=== PATIENT | female | born 1945 | race Caucasian/White ===

== ENCOUNTER 2016-11-27 17:22 | Inpatient (IN) | payer MEDICARE, MEDICAID ==
[~2016-11-27] VITALS: Ht 162.6 cm; Wt 90.4 kg
[2016-11-27] MEDS ORDERED: ASPIRIN 81 MG CHEW TAB ONE ×2 (17:44→17:52)
[2016-11-27] MEDS ORDERED: DOCUSATE SOD 100 MG CAP PO PRN (21:25)
[2016-11-27] MEDS ORDERED: SODIUM CHLORIDE 0.9% 1,000 ML IV SCH (21:25)
[2016-11-27] MEDS ORDERED: MORPHINE 2 MG/ML SYR IV PRN (21:25)
[2016-11-27] MEDS ORDERED: SODIUM CHLORIDE 0.9% FLUSH BAG 500 ML IV PRN (21:25)
[2016-11-27] MEDS ORDERED: SALINE FLUSH 10 ML FLUSH PRN (21:25)
[2016-11-27] MEDS ORDERED: NITROGLYCERIN 50 MG/250 ML IV PRN (21:25)
[2016-11-27] MEDS ORDERED: LORAZEPAM 0.5 MG TAB PO PRN (21:25)
[2016-11-27] MEDS ORDERED: NITROGLYCERIN SL 0.4 MG TAB SL PRN (21:25)
[2016-11-27] MEDS ORDERED: ONDANSETRON 4 MG VIAL IV PRN (21:25)
[2016-11-27] MEDS ORDERED: TEMAZEPAM 15 MG CAP PO PRN (21:25)
[2016-11-27] MEDS ORDERED: TRAMADOL 50 MG TAB PO PRN (21:25)
[2016-11-27] MEDS ORDERED: TEMAZEPAM 7.5 MG CAP PO PRN (21:25)
[2016-11-27] MEDS ORDERED: ACETAMINOPHEN 325 MG TAB PO PRN (21:30)
[2016-11-27 22:48] VITALS: BP_SYST 120; BP_SYST 122; RESP 18; TEMP 97.3; Ht 162.6 cm; Wt 90.4 kg
[2016-11-27 23:26] VITALS: RESP 20
[2016-11-28 03:50] VITALS: BP_SYST 122; RESP 17; TEMP 97.8
[2016-11-28 07:24] VITALS: BP_SYST 117; RESP 16; RESP 17; TEMP 97.8
[2016-11-28] MEDS: SALINE FLUSH 10 ML FLUSH SCH ×2 (08:43→20:48)
[2016-11-28] MEDS: ASPIRIN EC 81 MG TAB PO SCH (08:43)
[2016-11-28] MEDS ORDERED: KETOROLAC 0.5% EYE EACH SCH (09:20)
[2016-11-28] MEDS ORDERED: PREDNISOLONE ACET 1% OP SUSP EYE EACH SCH (09:20)
[2016-11-28] MEDS ORDERED: TRAMADOL 50 MG TAB PO PRN (10:30)
[2016-11-28] MEDS ORDERED: LIDOCAINE 2% SYR 5 ML IV ONE (11:09)
[2016-11-28] MEDS ORDERED: PROPOFOL 50ML VIAL IV ONE (11:09)
[2016-11-28 11:11] VITALS: BP_SYST 125; RESP 16; TEMP 98.4
[2016-11-28] MEDS: NEB-BROVANA 15 MCG/2 ML INH SCH ×2 (11:31→19:35)
[2016-11-28] MEDS: NEB-BUDESONIDE 0.5 MG INH SCH ×2 (11:31→19:35)
[2016-11-28] MEDS: PANTOPRAZOLE 40 MG TAB PO SCH (11:55)
[2016-11-28] MEDS: CHOLECALCIFEROL 1,000 UNITS TAB PO SCH (11:55)
[2016-11-28] MEDS: LEVOTHYROXINE 0.1 MG TAB PO SCH (11:55)
[2016-11-28] MEDS: ACETAMINOPHEN 500 MG TAB PO SCH ×3 (11:55→22:59)
[2016-11-28] MEDS ORDERED: MISSING DOSE XX ONE ×2 (12:20→19:25)
[2016-11-28] MEDS: ENOXAPARIN 40 MG/0.4 ML SYR SUBQ SCH (14:55)
[2016-11-28] MEDS: METOPROLOL TART 25 MG TAB PO SCH ×2 (14:55→20:48)
[2016-11-28] MEDS: DUONEB INH SCH ×2 (15:06→19:35)
[2016-11-28 15:26] VITALS: BP_SYST 126; RESP 18; TEMP 98.3
[2016-11-28] MEDS ORDERED: IRON SUCROSE COMPLEX 500 MG in SODIUM CHLORIDE 0.9% 250 ML IV ONE (16:45)
[2016-11-28 19:15] VITALS: BP_SYST 120; RESP 18; TEMP 98.3
[2016-11-28] MEDS: TRAZODONE 50 MG TAB PO SCH (20:48)
[2016-11-28] MEDS: CITALOPRAM 20 MG TAB PO SCH (20:48)
[2016-11-28 23:28] VITALS: BP_SYST 138; RESP 18; TEMP 98.1
[2016-11-29 03:15] VITALS: BP_SYST 136; RESP 18; TEMP 98.2
[2016-11-29] MEDS: PANTOPRAZOLE 40 MG TAB PO SCH (06:24)
[2016-11-29] MEDS: LEVOTHYROXINE 0.1 MG TAB PO SCH (06:24)
[2016-11-29 07:24] VITALS: BP_SYST 136; RESP 18; TEMP 97.7
[2016-11-29] MEDS ORDERED: MISSING DOSE XX ONE (07:40)
[2016-11-29] MEDS: NEB-BROVANA 15 MCG/2 ML INH SCH ×2 (08:05→20:19)
[2016-11-29] MEDS: DUONEB INH SCH ×2 (08:05→22:13)
[2016-11-29] MEDS: NEB-BUDESONIDE 0.5 MG INH SCH ×2 (08:05→20:19)
[2016-11-29] MEDS: SALINE FLUSH 10 ML FLUSH SCH ×2 (09:13→21:53)
[2016-11-29] MEDS: ASPIRIN EC 81 MG TAB PO SCH (09:13)
[2016-11-29] MEDS: CHOLECALCIFEROL 1,000 UNITS TAB PO SCH (09:13)
[2016-11-29] MEDS: METOPROLOL TART 25 MG TAB PO SCH ×2 (09:13→21:53)
[2016-11-29] MEDS: ENOXAPARIN 40 MG/0.4 ML SYR SUBQ SCH (09:14)
[2016-11-29] MEDS: ACETAMINOPHEN 500 MG TAB PO SCH ×2 (09:15→16:29)
[2016-11-29] MEDS ORDERED: IRON SUCROSE COMPLEX 500 MG in SODIUM CHLORIDE 0.9% 250 ML IV ONE (11:05)
[2016-11-29 11:09] VITALS: BP_SYST 142; RESP 18; TEMP 97.7
[2016-11-29 15:03] VITALS: BP_SYST 148; RESP 18; TEMP 98.1
[2016-11-29 17:38] VITALS: BP_SYST 147; RESP 20; TEMP 97.2
[2016-11-29] MEDS: TRAZODONE 50 MG TAB PO SCH (21:53)
[2016-11-29] MEDS: CITALOPRAM 20 MG TAB PO SCH (21:53)
[2016-11-30] VITALS (7 sets, daily range): BP systolic 123–143; RESP 16–20; TEMP 97.2–97.9
[2016-11-30] MEDS ORDERED: MISSING DOSE XX ONE (06:15)
[2016-11-30] MEDS: LEVOTHYROXINE 0.1 MG TAB PO SCH (06:50)
[2016-11-30] MEDS: PANTOPRAZOLE 40 MG TAB PO SCH (06:50)
[2016-11-30] MEDS: NEB-BROVANA 15 MCG/2 ML INH SCH ×2 (07:20→19:08)
[2016-11-30] MEDS: DUONEB INH SCH ×3 (07:20→19:08)
[2016-11-30] MEDS: NEB-BUDESONIDE 0.5 MG INH SCH ×2 (07:20→19:08)
[2016-11-30] MEDS: ASPIRIN EC 81 MG TAB PO SCH (08:17)
[2016-11-30] MEDS: SALINE FLUSH 10 ML FLUSH SCH ×2 (08:17→23:14)
[2016-11-30] MEDS: METOPROLOL TART 25 MG TAB PO SCH ×2 (08:18→19:52)
[2016-11-30] MEDS: ACETAMINOPHEN 500 MG TAB PO SCH ×4 (08:18→23:14)
[2016-11-30] MEDS: CHOLECALCIFEROL 1,000 UNITS TAB PO SCH (08:18)
[2016-11-30] MEDS: ENOXAPARIN 40 MG/0.4 ML SYR SUBQ SCH (08:19)
[2016-11-30] MEDS: TRAZODONE 50 MG TAB PO SCH (19:52)
[2016-11-30] MEDS: CITALOPRAM 20 MG TAB PO SCH (19:52)
[2016-12-01] VITALS (16 sets, daily range): BP systolic 126–165; RESP 14–22; TEMP 97.2–97.9
[2016-12-01] MEDS: PANTOPRAZOLE 40 MG TAB PO SCH (05:13)
[2016-12-01] MEDS: LEVOTHYROXINE 0.1 MG TAB PO SCH (05:13)
[2016-12-01] MEDS: DUONEB INH SCH ×2 (07:25→19:12)
[2016-12-01] MEDS: NEB-BROVANA 15 MCG/2 ML INH SCH ×2 (07:25→19:12)
[2016-12-01] MEDS: NEB-BUDESONIDE 0.5 MG INH SCH ×2 (07:25→19:12)
[2016-12-01] MEDS: ASPIRIN EC 81 MG TAB PO SCH (08:00)
[2016-12-01] MEDS: ENOXAPARIN 40 MG/0.4 ML SYR SUBQ SCH (09:00)
[2016-12-01] MEDS ORDERED: PEG/E-LYTE 4,000 ML BTL PO ONE (09:35)
[2016-12-01] MEDS: CHOLECALCIFEROL 1,000 UNITS TAB PO SCH (11:32)
[2016-12-01] MEDS: ACETAMINOPHEN 500 MG TAB PO SCH ×3 (11:33→23:52)
[2016-12-01] MEDS: METOPROLOL TART 25 MG TAB PO SCH ×2 (11:34→21:22)
[2016-12-01] MEDS: SALINE FLUSH 10 ML FLUSH SCH ×2 (11:34→21:21)
[2016-12-01] MEDS ORDERED: ONDANSETRON 4 MG VIAL IV PRN (13:25)
[2016-12-01] MEDS: NEB-XOPENEX 1.25 MG/3 ML INH SCH ×3 (13:48→22:31)
[2016-12-01] MEDS: NEB-NACL 3% 4 ML NEBU INH SCH ×3 (13:49→22:31)
[2016-12-01] MEDS ORDERED: MONTELUKAST 10 MG TAB PO SCH (21:00)
[2016-12-01] MEDS: CITALOPRAM 20 MG TAB PO SCH (21:21)
[2016-12-01] MEDS: TRAZODONE 50 MG TAB PO SCH (21:21)
[2016-12-02] VITALS (9 sets, daily range): BP systolic 126–160; RESP 16–30; TEMP 96–97.9
[2016-12-02] MEDS: NEB-XOPENEX 1.25 MG/3 ML INH SCH ×5 (02:50→14:40)
[2016-12-02] MEDS ORDERED: PEG/E-LYTE 4,000 ML BTL PO ONE (04:00)
[2016-12-02] MEDS: LEVOTHYROXINE 0.1 MG TAB PO SCH (06:00)
[2016-12-02] MEDS: PANTOPRAZOLE 40 MG TAB PO SCH (06:00)
[2016-12-02] MEDS: NEB-NACL 3% 4 ML NEBU INH SCH ×2 (06:30→10:41)
[2016-12-02] MEDS: DUONEB INH SCH ×2 (06:30→10:41)
[2016-12-02] MEDS: NEB-BROVANA 15 MCG/2 ML INH SCH (07:00)
[2016-12-02] MEDS: NEB-BUDESONIDE 0.5 MG INH SCH (07:00)
[2016-12-02] MEDS: ENOXAPARIN 40 MG/0.4 ML SYR SUBQ SCH (08:52)
[2016-12-02] MEDS: SALINE FLUSH 10 ML FLUSH SCH (08:52)
[2016-12-02] MEDS: ACETAMINOPHEN 500 MG TAB PO SCH (08:53)
[2016-12-02] MEDS: CHOLECALCIFEROL 1,000 UNITS TAB PO SCH (08:53)
[2016-12-02] MEDS: METOPROLOL TART 25 MG TAB PO SCH (08:53)
[2016-12-02] MEDS ORDERED: LIDOCAINE 2% SYR 5 ML IV ONE (10:10)
[2016-12-02] MEDS ORDERED: PROPOFOL 50ML VIAL IV ONE (10:10)
== END 2016-12-02 14:57 | disposition home health service (06) | DRG 392 ==
LOC: ENRESERV → ENRESERVTM → ENRESERVDT → ER 17:22 → EMR 21:14 → PCU2 22:44 → OBSVTOIN 11-28 10:24 → ENPENDDIS 11-28 10:24 → 4NT 11-29 17:49
PROVIDERS: ADMIT Internal Medicine; ATTEND Internal Medicine
PROC: 0DB98ZX Excision of Duodenum, Via Natural or Artificial Opening Endoscopic, Diagnostic (ICD-10-PCS; 2016-12-01)
PROC: 0DB68ZX Excision of Stomach, Via Natural or Artificial Opening Endoscopic, Diagnostic (ICD-10-PCS; 2016-12-01)
PROC: 0DBK8ZZ Excision of Ascending Colon, Via Natural or Artificial Opening Endoscopic (ICD-10-PCS; 2016-12-02)
PROC: 0DBL8ZX Excision of Transverse Colon, Via Natural or Artificial Opening Endoscopic, Diagnostic (ICD-10-PCS; principal; 2016-12-02 13:50)
DX: K29.80 Duodenitis without bleeding (principal); J96.11 Chronic respiratory failure with hypoxia; J44.9 Chronic obstructive pulmonary disease, unspecified; D69.6 Thrombocytopenia, unspecified; I11.0 Hypertensive heart disease with heart failure; E88.09 Other disorders of plasma-protein metabolism, not elsewhere classified; I50.32 Chronic diastolic (congestive) heart failure; J44.1 Chronic obstructive pulmonary disease with (acute) exacerbation; I25.10 Atherosclerotic heart disease of native coronary artery without angina pectoris; Z99.81 Dependence on supplemental oxygen; Z79.899 Other long term (current) drug therapy; F41.9 Anxiety disorder, unspecified; F32.9 Major depressive disorder, single episode, unspecified; K59.00 Constipation, unspecified; E03.9 Hypothyroidism, unspecified; M19.90 Unspecified osteoarthritis, unspecified site; Z87.11 Personal history of peptic ulcer disease; D50.9 Iron deficiency anemia, unspecified; D12.2 Benign neoplasm of ascending colon; D12.3 Benign neoplasm of transverse colon; K63.5 Polyp of colon; J45.909 Unspecified asthma, uncomplicated; R53.1 Weakness; I48.0 Paroxysmal atrial fibrillation; Z87.891 Personal history of nicotine dependence; Z79.51 Long term (current) use of inhaled steroids
CPT/HCPCS: 36415; 71010; 71020; 80048; 80053; 80061; 81001; 82140; 82150; 82533; 82550; 82553; 82607; 82746; 82803; 83540; 83690; 83735; 83880; 84439; 84443; 84466; 84484; 85025; 85610; 85730; 88305; 88342; 93005; 93306; 94640; 94799; 99223; 99232; 99233; 99239